=== PATIENT | male | born 1970 | race Caucasian/White ===

== ENCOUNTER 2021-02-06 11:30 | Emergency (ER) | payer MEDICARE ==
[2021-02-06] MEDS ORDERED: Bupivacaine 0.25% HCL 30 ML VIAL ONE (14:42)
[2021-02-06] MEDS ORDERED: Clindamycin 150 MG CAP ONE (15:19)
== END 2021-02-06 15:41 | disposition home or self-care (01) ==
LOC: CSHERS 11:30
DX: K04.7 Periapical abscess without sinus (principal); L03.211 Cellulitis of face
CPT/HCPCS: 41800; S0020

== ENCOUNTER 2022-08-28 10:13 | Outpatient (CLI) | payer OTHER | END 2022-08-28 10:14 | disposition home or self-care (01) | LOC: CSHCP 10:13 | PROVIDERS: ATTEND Student in an Organized Health Care Education/Training Program | DX: Z12.2 Encounter for screening for malignant neoplasm of respiratory organs (principal); F17.210 Nicotine dependence, cigarettes, uncomplicated; J44.9 Chronic obstructive pulmonary disease, unspecified | CPT/HCPCS: 71271; 94060; 94726; 94729; 94760 ==

== ENCOUNTER 2023-07-27 10:25 | Emergency (ER) | payer OTHER | END 2023-07-27 12:40 | disposition home or self-care (01) | LOC: CSHERS 10:25 | DX: K64.5 Perianal venous thrombosis (principal); I10 Essential (primary) hypertension; E10.40 Type 1 diabetes mellitus with diabetic neuropathy, unspecified; J44.9 Chronic obstructive pulmonary disease, unspecified; F17.210 Nicotine dependence, cigarettes, uncomplicated | CPT/HCPCS: 99283 ==

== ENCOUNTER 2023-12-16 08:08 | Outpatient (CLI) | payer OTHER | END 2023-12-16 08:09 | disposition home or self-care (01) | LOC: CSHRAD 08:08 | PROVIDERS: ATTEND Student in an Organized Health Care Education/Training Program | DX: Z12.2 Encounter for screening for malignant neoplasm of respiratory organs (principal); F17.218 Nicotine dependence, cigarettes, with other nicotine-induced disorders; Z13.6 Encounter for screening for cardiovascular disorders | CPT/HCPCS: 71271; 76706 ==

== ENCOUNTER 2024-03-19 12:10 | Outpatient (CLI) | payer OTHER | END 2024-03-19 12:11 | disposition home or self-care (01) | LOC: CSHMRI 12:10 | PROVIDERS: ATTEND Student in an Organized Health Care Education/Training Program | DX: M21.371 Foot drop, right foot (principal); R29.898 Other symptoms and signs involving the musculoskeletal system; M51.27 Other intervertebral disc displacement, lumbosacral region; M51.369 Other intervertebral disc degeneration, lumbar region without mention of lumbar back pain or lower extremity pain; M48.061 Spinal stenosis, lumbar region without neurogenic claudication | CPT/HCPCS: 72148 ==

== ENCOUNTER 2024-05-20 11:43 | Outpatient (CLI) | payer OTHER | END 2024-05-20 11:44 | disposition home or self-care (01) | LOC: CSHRAD 11:43 | PROVIDERS: ATTEND Student in an Organized Health Care Education/Training Program | DX: M47.26 Other spondylosis with radiculopathy, lumbar region (principal) | CPT/HCPCS: 72100 ==

== ENCOUNTER 2024-06-28 08:59 | Outpatient (CLI) | payer OTHER | END 2024-06-28 09:00 | disposition home or self-care (01) | LOC: CSHRAD 08:59 | PROVIDERS: ATTEND Physician Assistant | DX: M51.16 Intervertebral disc disorders with radiculopathy, lumbar region (principal); M47.26 Other spondylosis with radiculopathy, lumbar region | CPT/HCPCS: 72100 ==